=== PATIENT | male | born 1985 | race Caucasian/White ===

== ENCOUNTER 2018-05-12 22:44 | Emergency (ER) | payer OTHER ==
[~2018-05-12] VITALS: Ht 172.7 cm; Wt 123.0 kg
[2018-05-13] MEDS ORDERED: MORPHINE SULFATE 4 MG/ML SYRINGE IVP ONE (01:30)
[2018-05-13] MEDS ORDERED: LORazepam 2 MG/ML VIAL IVP ONE (01:30)
[2018-05-13] MEDS ORDERED: 0.9% SODIUM CHLORIDE 10 ML SYRINGE IVP PRN (01:30)
[2018-05-13 04:14] VITALS: BP 142/85
== END 2018-05-13 04:37 | disposition home or self-care (01) ==
LOC: EMS 22:45
DX: M23.91 Unspecified internal derangement of right knee (principal); I10 Essential (primary) hypertension; F17.210 Nicotine dependence, cigarettes, uncomplicated
CPT/HCPCS: 73562; 96374; 96375; 99284; J2060; J2270